=== PATIENT | male | born 1955 | race Hispanic/Latino ===

== ENCOUNTER 2021-01-07 12:28 | Emergency (ER) | payer SELFPAY ==
[~2021-01-07] VITALS: Ht 152.4 cm; Wt 42.2 kg
[2021-01-07] MEDS ORDERED: FLOMAX0.4 MG PO (14:40)
[2021-01-07] MEDS ORDERED: CEFDINIR300 MG PO (14:40)
== END 2021-01-07 14:46 | disposition home or self-care (01) ==
LOC: FSED 12:41
DX: R33.9 Retention of urine, unspecified (principal); Z86.12 Personal history of poliomyelitis; F17.210 Nicotine dependence, cigarettes, uncomplicated
CPT/HCPCS: 51700; 74176; 80053; 81003; 85025; 99284